=== PATIENT | male | born 1985 | race Caucasian/White ===

== ENCOUNTER 2020-02-11 08:07 | Outpatient (REF) | payer SELFPAY | END 2020-02-11 08:08 | disposition home or self-care (01) | LOC: HO.LAB 08:07 | PROVIDERS: PCP Pediatrics; Visit Provider Internal Medicine | DX: Z20.828 Contact with and (suspected) exposure to other viral communicable diseases (principal) | CPT/HCPCS: C9803; U0003 ==

== ENCOUNTER 2020-03-12 13:13 | Outpatient (REF) | payer BC, SELFPAY | END 2020-03-12 13:14 | disposition home or self-care (01) | LOC: HO.LAB 13:13 | PROVIDERS: Visit Provider Internal Medicine | DX: Z20.828 Contact with and (suspected) exposure to other viral communicable diseases (principal) | CPT/HCPCS: 36415; C9803; U0003 ==